=== PATIENT | female | born 1975 | race Asian ===

== ENCOUNTER 2025-05-17 17:57 | Emergency (ER) | payer OTHER, SELFPAY ==
--- NOTE | 2025-05-17 18:00 | ED.URI ---
HPI - URI/Sore Throat General Chief Complaint: Upper Respiratory Infection Stated Complaint: DIZZY/HEADACHE/NAUSEA/VOMITING Time Seen by Provider: 05/17/25 18:00 Source: patient Mode of arrival: ambulatory Limitations: no limitations History of Present Illness HPI Narrative: Remy is a 50-year-old female patient presenting to the clinic today with complaints of dizziness, headache, nausea, and vomiting x1 day. States the symptoms started around 5:00 a.m. this morning. States she is unable to keep any fluids down. Denies any chest pain but feels short of breath. Started taking tiniadazole yesterday for bacterial vaginosis symptoms. Is concerned the medication could have caused her symptoms. She denies any fevers, chills, body aches. Does reports some nasal congestion without sore throat. Related Data Allergies Allergy/AdvReac Type Severity Reaction Status Date / Time No Known Allergies Allergy Verified 05/17/25 18:45 Review of Systems Review of Systems: Pertinent positives per HPI. Patient denies any fever, chills, rash, visual changes, dizziness, cough, shortness of breath, chest pain, palpitations, nausea, vomiting, diarrhea, constipation, abdominal pain, or any urinary issues. PMFSH Comments At the time of my signature, I reviewed and agree with the nursing past medical, surgical, social, and family history. There is no relevant family history pertinent to the patient complaint. Exam Narrative: General: Well-developed, well nourished, in no apparent distress Head: Normocephalic, atraumatic Eyes: Pupils equally round and reactive to light bilaterally, EOM intact, sclera and conjunctive clear, no discharge, lids normal Ears: TMs intact and clear, ear canals clear, no drainage, grossly hearing normal. Nose: Nares patent, clear nasal discharge, mild inflammation, no sinus tenderness. Mouth: Oral pharynx without lesions or masses, good dentition, MM dry. Neck: Supple, trachea midline, no enlargement of anterior or posterior cervical nodes, no thyroid masses or goiter palpable. Cardio: Regular rate and rhythm, s1 and s2 normal, no murmur appreciated. Resp: Clear to auscultation bilaterally, no rhonchi, rales, wheezing or rubs Musculoskeletal: No deformity, non-tender to palpation, grossly normal range of motion, muscle strength strong and equal, peripheral pulse strong, no edema, no cyanosis, normal gait and station Neuro: Alert and oriented x4 with normal speech, no focal deficits, cranial nerves I through XII intact, muscle strength 5 out of 5, sensation intact bilaterally Course Course Emergency Course: Portions of this record may have been created with voice recognition software. Level of Care: Express Care Visit Vital Signs Vital signs: Vital Signs Temperature 36.7 C 05/17/25 18:18 Pulse Rate 66 05/17/25 18:18 Respiratory Rate 14 05/17/25 18:18 Blood Pressure 147/88 H 05/17/25 18:18 Pulse Oximetry 100 05/17/25 18:18 Oxygen Delivery Room Air 05/17/25 18:18 Temperature 36.7 C 05/17/25 18:18 Pulse Rate 67 05/17/25 18:30 Respiratory Rate 14 05/17/25 18:18 Blood Pressure 162/91 H 05/17/25 18:30 Pulse Oximetry 100 05/17/25 18:18 Oxygen Delivery Room Air 05/17/25 18:18 Vital signs reviewed MDM - URI/Sore Throat MDM Narrative Medical decision making narrative: At the time of visit patient is resting comfortably on the exam table. Patient appears to be nontoxic. Complaints of dizziness, headache, nausea, and vomiting x1 day. States the symptoms started around 5:00 a.m. this morning. States she is unable to keep any fluids down. Denies any chest pain but feels short of breath. Started taking tiniadazole yesterday for bacterial vaginosis symptoms. Is concerned the medication could have caused her symptoms. She denies any fevers, chills, body aches. Does reports some nasal congestion without sore throat. COVID and influenza testing were ordered. Orthostatics were ordered. Patient just urinated prior to arrival. Labs: COVID and influenza testing was negative in the clinic today. Orthostatic blood pressures obtained within normal limits-lying blood pressure was 162/92 with a heart rate of 72, sitting blood pressure was 158/92 with a heart rate of 67, standing blood pressure was 162/91 with heart rate of 67 Plan: I suspect patient has acute nausea vomiting with mild dehydration. Offer to send the patient to the ER for further evaluation and she declined at this time. She would like to try some medications to help with the vomiting. Will have her hold taking the tiniadazole and she may start Metrogel vaginally. Prescription for Zofran was sent to the pharmacy. Supportive measures were discussed with the patient and they voiced understanding discharge instructions and agrees to treatment plan. Return precautions reviewed Differential Diagnosis Differential diagnosis: Likely upper respiratory infection, otitis media, sinusitis, viral infection, bronchitis, influenza, pharyngitis and other (COVID, bacterial vaginosis, adverse drug reaction) Discharge Plan Discharge Clinical Impression: Acute nausea with nonbilious vomiting, Mild dehydration, Bacterial vaginosis Patient Disposition: Home Condition: Stable Instructions: Antibiotic Form, Dehydration (ED), Acute Nausea and Vomiting (ED) Additional Instructions: Orthostatics normal in the clinic today COVID and influenza testing was negative I suspect you are having acute nausea and vomiting causing mild dehydration. Zofran 8 mg ODT was given in the clinic today Prescription for Zofran was sent to the pharmacy for nausea May discontinue the tinadozole and use the metrogel as prescribed. Increase fluids and stay well hydrated Gradually increase fluids over the next 24 hours-clear fluids and then advance as tolerated Follow-up with your primary care doctor in 3-5 days if symptoms persist Go to the emergency room if her symptoms worsen-weakness, lethargy, fever not controlled by Tylenol or Motrin, shortness of breath, chest pain, nausea vomiting, diarrhea, or abdominal pain Patient Language: Japanese Prescriptions: New metronidazole [Vandazole] 0.75 % (37.5mg/5 gram) gel 1 appful vaginal HS 5 Days Qty: 70 0RF ondansetron 8 mg tablet,disintegrating 8 mg PO Q8H PRN (Reason: nausea and vomiting) 3 Days Qty: 10 0RF Follow-up/Referrals: UNKNOWN,DOCTOR [Non-Staff] Time of Disposition: 18:45 Quality NIHSS Nursing Documentation ED NIHSS nursing documentation: reviewed/agree
[2025-05-17 18:18] VITALS: BP 147/88; PULSE 66; RESP 14; TEMP 36.7; O2SAT 100
[2025-05-17 18:30] VITALS: BP 158/92; BP 162/91; BP 162/92; PULSE 67; PULSE 72
[2025-05-17] MEDS: ONDANSETRON HCL ODT 4 MG TABLET 8 MG SUBLINGUAL (18:52)
[2025-05-20 11:48] LABS: EDCOVIDSCREEN Negative (Negative); EDINFLUASCREEN Negative (Negative); EDINFLUBSCREEN Negative (Negative)
== END 2025-05-17 18:56 | disposition home or self-care (01) ==
PROVIDERS: Emergency Provider Nurse Practitioner Family
DX: R11.2 Nausea with vomiting, unspecified (principal); E86.0 Dehydration; N76.0 Acute vaginitis; Z20.822 Contact with and (suspected) exposure to COVID-19
CPT/HCPCS: 87426; 87804; 99203; A9270; G0463